=== PATIENT | male | born 1950 | race Caucasian/White ===

== ENCOUNTER → 2017-07-26 | Outpatient (CLI) | payer BC ==
--- NOTE | 2017-07-26 12:48 | CT ---
EXAMINATION TYPE: CT lumbar spine wo con DATE OF EXAM: 07/26/2017 COMPARISON: NONE HISTORY: Low back pain radiating down left leg x [address] DLP: 996 mGycm Automated exposure control for dose reduction was used. An unenhanced CT of the lumbar spine was performed. Bone and soft tissue window settings are submitt ed as well as coronal and sagittal reconstructions. FINDINGS: Lumbar vertebral bodies show preserved height. Retrolisthesis grade 1 L4-5, anterolisthesis grade 1 L 3-4. There is multilevel spondylosis, bone mineralization maintained. There is a spinal curvature. L1-L2: There is facet arthropathy change. Mild loss of disc height is present. Posterior broad-based disc bulge causes minimal anterior mass effect on the thecal sac, no significant foraminal encroachme nt. L2-L3: Facet arthropathy is noted encroaching on the lateral recesses. Posterior extension endplate d isc complex causes anterior mass effect on the thecal sac, only mild central stenosis. Lateral extens ion endplate disc complex contributes cause left-sided greater than right foraminal encroachment. The re is loss of disc height. L3-L4: Loss of disc height is noted, the listhesis contributes to cause bilateral foraminal encroachm ent as well as spinal stenosis which is severe. Air density coursing from the right facet with associ ated facet arthropathy, hypertrophy ligamentum flavum calcification is noted possibly synovial cyst o n the right, there is impression on the lateral recesses. Vacuum phenomenon present at the left facet . Loss of disc height is present. L4-L5: Facet arthropathy is noted, listhesis contributes to cause foraminal encroachment greater on t he right likely contributed by the spinal curvature, there is loss of disc height with associated vac uum phenomenon. Moderate central canal stenosis is suspected. L5-S1: Some loss of disc height is present. Lateral extension of endplate disc complex encroaches mil dly on the foramina. No significant central stenosis. Broad-based disc bulge causes minimal anterior mass effect on the thecal sac. IMPRESSION: Spinal stenosis greatest at L3-4 with possible synovial cyst, correlate with CT prior to any interven tion. Multilevel degenerative disc disease, facet arthropathy. Spinal curvature. Additional findings above.
== END | disposition home or self-care (01) ==
LOC: RADCTMAIN 12:12
PROVIDERS: ATTEND Family Medicine
DX: M48.061 Spinal stenosis, lumbar region without neurogenic claudication (principal); M51.16 Intervertebral disc disorders with radiculopathy, lumbar region; M46.86 Other specified inflammatory spondylopathies, lumbar region; M43.9 Deforming dorsopathy, unspecified
CPT/HCPCS: 72131

== ENCOUNTER 2018-10-20 07:51 | Day surgery (SDC) | payer BC ==
[2018-10-17 15:49] VITALS: BMI 25.7
[~2018-10-20 07:51] MED LIST: LACTATED RINGERS 1,000 ML IV SCH
[2018-10-20 08:01] VITALS: TEMP 97.9
[2018-10-20] MEDS ORDERED: LIDOCAINE 1% 20 ML VIAL (10MG/ML) FOR IV START INTRADERMA ONE (08:20)
[2018-10-20] MEDS ORDERED: PROPOFOL 10 MG/ML 20 ML VIAL IV ONE (09:15)
[2018-10-20] MEDS ORDERED: LIDOCAINE 1% INJ 10MG/ML (20 ML MDV) ONE (09:15)
--- NOTE | 2018-10-20 09:31 | P.GSHP ---
History of Present Illness H&P Date: 10/20/18 Chief Complaint: Screening colonoscopy Cyst 71-year-old male who presents today for screening colonoscopy. Patient denies a significant GI complaints. Past Medical History Past Medical History: COPD, Hyperlipidemia, Hypertension, Rheumatoid Arthritis (RA) Additional Past Medical History / Comment(s): ddd,emphysema, psoriasis History of Any Multi-Drug Resistant Organisms: None Reported Past Surgical History: Heart Catheterization, Hernia Repair, Tonsillectomy Additional Past Surgical History / Comment(s): thyroid bx-neg, anish inguinal hernia repair, heart cath 25 years ago -neg, Past Anesthesia/Blood Transfusion Reactions: Previous Problems w/ Anesthesia Additional Past Anesthesia/Blood Transfusion Reaction / Comment(s): "last time came out of anesthesia came out swinging" Smoking Status: Former smoker - Past Family History Father Family Medical History: Cancer, Congestive Heart Failure (CHF), Hypertension, Rheumatoid Arthritis (RA) Additional Family Medical History / Comment(s): 2014 liver ca and chf Mother Family Medical History: Hyperlipidemia, Hypertension, Rheumatoid Arthritis (RA) Additional Family Medical History / Comment(s): mom is still alive at age 89 Medications and Allergies Home Medications Medication Instructions Recorded Confirmed Type Aspirin 81 mg PO HS 01/15/15 10/20/18 History Enalapril Maleate 10 mg PO DAILY 01/15/15 10/20/18 History Gabapentin 600 mg PO TID 01/15/15 10/20/18 History Hydrocodone/Acetaminophen 1 tab PO Q4-6H PRN 01/15/15 10/20/18 History [Hydrocodon-Acetaminophn 10-325] Simvastatin 40 mg PO HS 01/15/15 10/20/18 History Zolpidem Tartrate 10 mg PO HS PRN 01/15/15 10/20/18 History Esomeprazole Magnesium [NexIUM] 20 mg PO DAILY 01/16/15 10/20/18 History Cholecalciferol [Vitamin D3 (25 1,000 unit PO DAILY 10/17/18 10/20/18 History Mcg = 1000 Iu)] Ibuprofen [Motrin] 600 mg PO TID 10/17/18 10/20/18 History Montelukast Sodium [Singulair] 10 mg PO HS 10/17/18 10/20/18 History Allergies Allergy/AdvReac Type Severity Reaction Status Date / Time codeine phosphate AdvReac HEART Verified 10/20/18 08:02 [From Tylenol-Codeine #3] FLUTTERS Surgical - Exam Vital Signs Temp Pulse Resp Pulse Ox 97.9 F 97 16 98 10/20/18 07:59 10/20/18 07:59 10/20/18 07:59 10/20/18 07:59 - General well developed, well nourished, no distress - Eyes PERRL - ENT normal pinna - Neck no masses - Respiratory normal expansion - Cardiovascular Rhythm: regular - Abdomen Abdomen: soft, non tender Assessment and Plan Assessment: We'll perform screening colonoscopy.
--- NOTE | 2018-10-20 09:48 | P.OP ---
Date of Procedure: 10/20/18 Preoperative Diagnosis: Screening colonoscopy Postoperative Diagnosis: Diverticulosis Procedure(s) Performed: Colonoscopy Anesthesia: MAC Surgeon: Ihsan Pierson Pathology: none sent Condition: stable Disposition: PACU Description of Procedure: The patient's placed on the endoscopy table in the lateral position. He received IV sedation. Digital rectal exam performed which revealed a few external hemorrhoids. Flexible colonoscope was then placed patient anus passed throughout the entire colon. The ileocecal valve lesions. The cecum, ascending and transverse colon appeared normal. In the descending and sigmoid was moderate diverticular changes. The scope was then brought back the rectum and this appeared normal. Scope was withdrawn through the anus and there were external hemorrhoids noted. Scope was withdrawn for patient.
[2018-10-20 10:01] VITALS: BP 120/80; PULSE 69; RESP 18
== END 2018-10-20 10:34 | disposition home or self-care (01) ==
LOC: ORWHC2ENDO 07:51
PROVIDERS: ATTEND Surgery
DX: Z12.11 Encounter for screening for malignant neoplasm of colon (principal); K57.30 Diverticulosis of large intestine without perforation or abscess without bleeding; K64.4 Residual hemorrhoidal skin tags; I10 Essential (primary) hypertension; E78.5 Hyperlipidemia, unspecified; J44.9 Chronic obstructive pulmonary disease, unspecified; M06.9 Rheumatoid arthritis, unspecified; J43.9 Emphysema, unspecified; L40.9 Psoriasis, unspecified; Z87.891 Personal history of nicotine dependence; Z82.49 Family history of ischemic heart disease and other diseases of the circulatory system; Z80.0 Family history of malignant neoplasm of digestive organs; Z82.61 Family history of arthritis; Z79.1 Long term (current) use of non-steroidal anti-inflammatories (NSAID); Z79.82 Long term (current) use of aspirin; Z79.891 Long term (current) use of opiate analgesic; Z79.899 Other long term (current) drug therapy; Z88.5 Allergy status to narcotic agent
CPT/HCPCS: J2001; J2704; G0121

== ENCOUNTER 2019-06-01 10:05 | Inpatient (IN) | payer BC ==
[2019-06-01] MEDS ORDERED: ALBUTEROL NEBULIZED 2.5 MG/3 ML INHALATION STA (10:24)
[2019-06-01] MEDS ORDERED: IPRATROPIUM-ALBUTEROL 3 ML NEB INHALATION STA (10:24)
[2019-06-01] MEDS ORDERED: SODIUM CHLORIDE 0.9% 500 ML 500 ML IV ONE ×3 (10:24→12:33)
[2019-06-01 10:47] LABS: Basophils # (A) 0.1 k/uL (0-0.2); Basophils % (A) 1 %; Eosinophils # (A) 0.2 k/uL (0-0.7); Eosinophils % (A) 3 %; HCT 46.9 % (39.0-53.0); HGB 15.2 gm/dL (13.0-17.5); Lymphocytes # (A) 1.9 k/uL (1.0-4.8); Lymphocytes % (A) 25 %; MCH 28.7 pg (25.0-35.0); MCHC 32.5 g/dL (31.0-37.0); MCV 88.4 fL (80.0-100.0); Mean Platelet Volume 6.7; Monocytes # (A) 0.4 k/uL (0-1.0); Monocytes % (A) 5 %; Neutrophils # (A) 4.9 k/uL (1.3-7.7); Neutrophils % (A) 65 %; Platelet Count 215 k/uL (150-450); RBC 5.31 m/uL (4.30-5.90); WBC 7.6 k/uL (3.8-10.6)
[2019-06-01 10:51] LABS: Appearance,Urine Clear (Clear); Bacteria,Urine Rare /hpf; Bilirubin,Urine Negative (Negative); Blood,Urine Small (Negative); Color,Urine Yellow; Glucose,Urine (UA) Negative (Negative); Granular Casts,Urine 4 /lpf (0); Hyaline Casts,Urine 21 /lpf (0-2); Ketones,Urine Trace (Negative); Leukocyte Esterase,Urine Negative (Negative); Mucus,Urine Occasional /hpf; Nitrite,Urine Negative (Negative); PH, Urine 5.5 (5.0-8.0); Protein,Urine 2+ (Negative); RBC,Urine 2 /hpf (0-5); Specific Gravity,Urine 1.023 (1.001-1.035); Urobilinogen,Urine <2.0 mg/dL (<2.0); WBC,Urine 1 /hpf (0-5)
[2019-06-01 10:57] LABS: ALT 24 U/L (4-49); AST 29 U/L (17-59); African American GFR (CKD) >90 (>60 ml/min/1.73 sqM); Albumin 3.9 g/dL (3.5-5.0); Alkaline Phosphatase 68 U/L (38-126); Anion Gap 14 mmol/L; Blood Urea Nitrogen 15 mg/dL (9-20); Calcium 8.9 mg/dL (8.4-10.2); Carbon Dioxide 17 mmol/L (22-30); Chloride 107 mmol/L (98-107); Glucose 116 mg/dL (74-99); Magnesium 2.3 mg/dL (1.6-2.3); Non-African American GFR(CKD) 89 (>60 ml/min/1.73 sqM); Potassium 4.2 mmol/L (3.5-5.1); Sodium 138 mmol/L (137-145); Total Bilirubin 0.3 mg/dL (0.2-1.3); Total Protein 6.3 g/dL (6.3-8.2)
[2019-06-01 11:12] LABS: INR 0.9 (<1.2); Partial Thromboplastin Time 20.6 sec (22.0-30.0); Prothrombin Time 9.7 sec (9.0-12.0)
--- NOTE | 2019-06-01 11:13 | ED ---
General Adult HPI - General Chief complaint: Syncope Stated complaint: syncope Time Seen by Provider: 06/01/19 10:19 Source: patient, RN notes reviewed, old records reviewed Mode of arrival: ambulatory Limitations: no limitations - History of Present Illness Initial comments: 69-year-old male presenting with syncopal episode, vomiting. Patient was at [facility], driving a high-low. He was found unresponsive, he had vomited. He regained consciousness prior to EMS arrival. He was stating that he felt lightheaded, didn't pass out and vomited once. Denied any preceding chest pain or dyspnea. He has no complaints at the time my evaluation, no chest pain, no dyspnea, no cough, no fever, no abdominal pain, no nausea, no focal numbness or weakness. No headache. - Related Data Home Medications Medication Instructions Recorded Confirmed Aspirin 81 mg PO HS 01/15/15 10/20/18 Enalapril Maleate 10 mg PO DAILY 01/15/15 10/20/18 Gabapentin 600 mg PO TID 01/15/15 10/20/18 Hydrocodone/Acetaminophen 1 tab PO Q4-6H PRN 01/15/15 10/20/18 [Hydrocodon-Acetaminophn 10-325] Simvastatin 40 mg PO HS 01/15/15 10/20/18 Zolpidem Tartrate 10 mg PO HS PRN 01/15/15 10/20/18 Esomeprazole Magnesium [NexIUM] 20 mg PO DAILY 01/16/15 10/20/18 Cholecalciferol [Vitamin D3 (25 1,000 unit PO DAILY 10/17/18 10/20/18 Mcg = 1000 Iu)] Ibuprofen [Motrin] 600 mg PO TID 10/17/18 10/20/18 Montelukast Sodium [Singulair] 10 mg PO HS 10/17/18 10/20/18 Allergies Allergy/AdvReac Type Severity Reaction Status Date / Time codeine phosphate AdvReac HEART Verified 10/20/18 08:02 [From Tylenol-Codeine #3] FLUTTERS Review of Systems ROS Statement: Those systems with pertinent positive or pertinent negative responses have been documented in the HPI. ROS Other: All systems not noted in ROS Statement are negative. Past Medical History Past Medical History: COPD, Hyperlipidemia, Hypertension, Rheumatoid Arthritis (RA) Additional Past Medical History / Comment(s): ddd,emphysema, psoriasis History of Any Multi-Drug Resistant Organisms: None Reported Past Surgical History: Heart Catheterization, Hernia Repair, Tonsillectomy Additional Past Surgical History / Comment(s): thyroid bx-neg, anish inguinal hernia repair, heart cath 25 years ago -neg, Past Anesthesia/Blood Transfusion Reactions: Previous Problems w/ Anesthesia Additional Past Anesthesia/Blood Transfusion Reaction / Comment(s): "last time came out of anesthesia came out swinging" Past Psychological History: No Psychological Hx Reported Smoking Status: Current some day smoker Past Alcohol Use History: None Reported Past Drug Use History: None Reported - Past Family History Father Family Medical History: Cancer, Congestive Heart Failure (CHF), Hypertension, Rheumatoid Arthritis (RA) Additional Family Medical History / Comment(s): 2014 liver ca and chf Mother Family Medical History: Hyperlipidemia, Hypertension, Rheumatoid Arthritis (RA) Additional Family Medical History / Comment(s): mom is still alive at age 89 General Exam Limitations: no limitations General appearance: alert, in no apparent distress Head exam: Present: atraumatic, normocephalic Eye exam: Present: normal appearance, PERRL, EOMI. Absent: nystagmus ENT exam: Present: mucous membranes dry Neck exam: Present: normal inspection. Absent: tenderness, meningismus Respiratory exam: Present: decreased breath sounds. Absent: respiratory distress, wheezes, rales, rhonchi Cardiovascular Exam: Present: regular rate, normal rhythm GI/Abdominal exam: Present: soft. Absent: distended, tenderness, guarding Extremities exam: Present: normal inspection, normal capillary refill. Absent: pedal edema, calf tenderness Neurological exam: Present: alert, oriented X3, CN II-XII intact. Absent: motor sensory deficit Psychiatric exam: Present: normal affect, normal mood Skin exam: Present: warm, dry, intact. Absent: cyanosis, diaphoretic Course Vital Signs 06/01/19 06/01/19 06/01/19 10:17 10:53 11:04 Temperature 98.2 F Pulse Rate 92 80 86 Respiratory 18 Rate Blood Pressure 100/62 O2 Sat by Pulse 90 L Oximetry EKG Findings - EKG Comments: EKG Findings:: EKG: Normal sinus rhythm, rate of 90, SC interval 174, QRS duration 108, QTC 472, no ST segment elevation Medical Decision Making - Medical Decision Making 61-year-old male with syncopal episode, vomiting. Workup in the emergency department reveals EKG showing sinus rhythm no ST segment changes. Patient has normal CBC, normal CMP, he is hypoxic and has a mildly elevated troponin 0.045, there is concern for pulmonary embolism and CT angiography is performed this is negative for PE. Patient is started on heparin, given aspirin. He remains c hest pain-free while in the emergency department. He will be admitted with cardiology on consult. Case is discussed with the admitting physician. Diagnosis: Syncope, non-ST segment elevated [place] - Lab Data Result diagrams: 06/01/19 10:21 06/01/19 10:21 Lab Results 06/01/19 06/01/19 06/01/19 Range/Units 10:05 10:21 10:21 WBC 7.6 (3.8-10.6) k/uL RBC 5.31 (4.30-5.90) m/uL Hgb 15.2 (13.0-17.5) gm/dL Hct 46.9 (39.0-53.0) % MCV 88.4 (80.0-100.0) fL MCH 28.7 (25.0-35.0) pg MCHC 32.5 (31.0-37.0) g/dL RDW 13.0 (11.5-15.5) % Plt Count 215 (150-450) k/uL Neutrophils % 65 % Lymphocytes % 25 % Monocytes % 5 % Eosinophils % 3 % Basophils % 1 % Neutrophils # 4.9 (1.3-7.7) k/uL Lymphocytes # 1.9 (1.0-4.8) k/uL Monocytes # 0.4 (0-1.0) k/uL Eosinophils # 0.2 (0-0.7) k/uL Basophils # 0.1 (0-0.2) k/uL PT 9.7 (9.0-12.0) sec INR 0.9 (<1.2) APTT 20.6 L (22.0-30.0) sec D-Dimer 1.31 H (<0.60) mg/L FEU Sodium (137-145) mmol/L Potassium (3.5-5.1) mmol/L Chloride (98-107) mmol/L Carbon Dioxide (22-30) mmol/L Anion Gap mmol/L BUN (9-20) mg/dL Creatinine (0.66-1.25) mg/dL Est GFR (CKD-EPI)AfAm (>60 ml/min/1.73 sqM) Est GFR (CKD-EPI)NonAf (>60 ml/min/1.73 sqM) Glucose (74-99) mg/dL Calcium (8.4-10.2) mg/dL Magnesium (1.6-2.3) mg/dL Total Bilirubin (0.2-1.3) mg/dL AST (17-59) U/L ALT (4-49) U/L Alkaline Phosphatase (38-126) U/L Troponin I (0.000-0.034) ng/mL Total Protein (6.3-8.2) g/dL Albumin (3.5-5.0) g/dL Urine Color Yellow Urine Appearance Clear (Clear) Urine pH 5.5 (5.0-8.0) Ur Specific [place] 1.023 (1.001-1.035) Urine Protein 2+ H (Negative) Urine Glucose (UA) Negative (Negative) Urine Ketones Trace H (Negative) Urine Blood Small H (Negative) Urine Nitrite Negative (Negative) Urine Bilirubin Negative (Negative) Urine Urobilinogen <2.0 (<2.0) mg/dL Ur Leukocyte Esterase Negative (Negative) Urine RBC 2 (0-5) /hpf Urine WBC 1 (0-5) /hpf Urine Bacteria Rare H (None) /hpf Hyaline Casts 21 H (0-2) /lpf Granular Casts 4 (0) /lpf Urine Mucus Occasional H (None) /hpf 06/01/19 06/01/19 Range/Units 10:21 10:21 WBC (3.8-10.6) k/uL RBC (4.30-5.90) m/uL Hgb (13.0-17.5) gm/dL Hct (39.0-53.0) % MCV (80.0-100.0) fL MCH (25.0-35.0) pg MCHC (31.0-37.0) g/dL RDW (11.5-15.5) % Plt Count (150-450) k/uL Neutrophils % % Lymphocytes % % Monocytes % % Eosinophils % % Basophils % % Neutrophils # (1.3-7.7) k/uL Lymphocytes # (1.0-4.8) k/uL Monocytes # (0-1.0) k/uL Eosinophils # (0-0.7) k/uL Basophils # (0-0.2) k/uL PT (9.0-12.0) sec INR (<1.2) APTT (22.0-30.0) sec D-Dimer (<0.60) mg/L FEU Sodium 138 (137-145) mmol/L Potassium 4.2 (3.5-5.1) mmol/L Chloride 107 (98-107) mmol/L Carbon Dioxide 17 L (22-30) mmol/L Anion Gap 14 mmol/L BUN 15 (9-20) mg/dL Creatinine 0.88 (0.66-1.25) mg/dL Est GFR (CKD-EPI)AfAm >90 (>60 ml/min/1.73 sqM) Est GFR (CKD-EPI)NonAf 89 (>60 ml/min/1.73 sqM) Glucose 116 H (74-99) mg/dL Calcium 8.9 (8.4-10.2) mg/dL Magnesium 2.3 (1.6-2.3) mg/dL Total Bilirubin 0.3 (0.2-1.3) mg/dL AST 29 (17-59) U/L ALT 24 (4-49) U/L Alkaline Phosphatase 68 (38-126) U/L Troponin I 0.045 H* (0.000-0.034) ng/mL Total Protein 6.3 (6.3-8.2) g/dL Albumin 3.9 (3.5-5.0) g/dL Urine Color Urine Appearance (Clear) Urine pH (5.0-8.0) Ur Specific [place] (1.001-1.035) Urine Protein (Negative) Urine Glucose (UA) (Negative) Urine Ketones (Negative) Urine Blood (Negative) Urine Nitrite (Negative) Urine Bilirubin (Negative) Urine Urobilinogen (<2.0) mg/dL Ur Leukocyte Esterase (Negative) Urine RBC (0-5) /hpf Urine WBC (0-5) /hpf Urine Bacteria (None) /hpf Hyaline Casts (0-2) /lpf Granular Casts (0) /lpf Urine Mucus (None) /hpf Critical Care Time Critical Care Time: Yes Total Critical Care Time: 35 Disposition Clinical Impression: Syncope, NSTEMI (non-ST elevated myocardial infarction) Disposition: ADMITTED IP TO THIS [facility] Condition: Stable Is patient prescribed a controlled substance at d/c from ED?: No Referrals: Saman Gray MD [Primary Care Provider] - 1-2 days Decision to Admit Reason: Admit from EC Decision Date: 06/01/19 Decision Time: 12:36
[2019-06-01 11:25] LABS: D-Dimer 1.31 mg/L FEU (<0.60)
[2019-06-01] MEDS ORDERED: HEPARIN SODIUM,PORCINE 10,000 UNIT/ML 1 ML VIAL IV ONE (11:26)
[2019-06-01] MEDS ORDERED: HEPARIN SODIUM,PORCINE 5,000 UNIT/ML 1 ML VIAL IV PRN (11:26)
[2019-06-01] MEDS ORDERED: HEPARIN SOD,PORK IN 0.45% NACL 25,000 UNIT in 0.45% NACL 1 250ML.BAG IV SCH (11:30)
--- NOTE | 2019-06-01 12:16 | CT ---
EXAMINATION TYPE: CT angio chest DATE OF EXAM: 06/01/2019 COMPARISON: NONE HISTORY: Syncope. Shortness of breath. Possible pulmonary embolism. CT DLP: 537 mGycm. Automated Exposure Control for Dose Reduction was Utilized. CONTRAST: CTA scan of the thorax is performed with IV Contrast, patient injected with 100 mL of Isovue 370, pul monary embolism protocol. MIP Images are created on CT scanner and reviewed. FINDINGS: LUNGS: There is background moderate underlying emphysematous change with some right lower lung depend ent atelectasis and/or infiltrate. No pleural effusion or pneumothorax is seen bilaterally. No suspic ious nodules or masses. MEDIASTINUM: There is satisfactory enhancement of the pulmonary artery and its branches, there is no CT evidence for pulmonary embolism. There are no greater than 1 cm hilar or mediastinal lymph nodes. There are prominent but subcentimeter bilateral hilar and mediastinal lymph nodes. No cardiomegaly or pericardial effusion is seen. Coronary artery calcification is present which is noted marker for u nderlying coronary artery disease. OTHER: Simple appearing 4.3 cm thin-walled cyst. Moderate multilevel spurring in the thoracic spine. IMPRESSION: No CT evidence for acute pulmonary embolism. Moderate emphysematous change with right bas ilar posterior dependent atelectasis and/or limited consolidation.
[2019-06-01] MEDS ORDERED: ASPIRIN 81 MG PO STA (12:30)
[2019-06-01] MEDS ORDERED: NITROGLYCERIN SL TABS 0.4 MG TAB SUBLINGUAL PRN ×3 (12:30→15:49)
[2019-06-01] MEDS ORDERED: SODIUM CHLORIDE 0.9% 1,000 ML in EMPTY BAG 1 BAG IV ONE (13:48)
[2019-06-01] MEDS ORDERED: ALPRAZolam 0.25 MG TAB PO PRN (13:48)
[2019-06-01] MEDS ORDERED: ALPRAZolam 0.5 MG TAB PO PRN (13:48)
[2019-06-01] MEDS ORDERED: ASPIRIN 325 MG TAB PO STA (13:48)
[2019-06-01] MEDS ORDERED: ATORVASTATIN 80 MG TAB PO STA (13:48)
--- NOTE | 2019-06-01 14:14 | CONS ---
CONSULTATION Mr. Ojeda is a 69-year-old gentleman who came to the emergency room with a history of syncope and vomiting. Patient gives a history that he was driving [place] and he suddenly became dizzy and became unresponsive and subsequently he had vomiting. When the EMS arrived, patient did regain his consciousness, but he was feeling lightheadedness and had one vomiting. He did not complain of any significant chest pain at that time, but after he arrived on the 6th floor, he says he is having mild dull, aching pain. He denies any abdominal pain. In the emergency room, EKG did not show any significant abnormality, but the troponin was elevated and he was mildly hypotensive. His oxygen saturation was 90%. In view of that, patient underwent a CT scan of the chest which did not show any evidence of pulmonary embolism and patient was admitted initially non ST-segment elevation myocardial infarction. HOME MEDICATIONS: Include aspirin 81 mg daily, enalapril 10 mg daily, gabapentin 600 mg 3 times a day, hydrocodone, simvastatin, Nexium, and Ambien. REVIEW OF THE SYSTEM: Otherwise unremarkable. PAST MEDICAL HISTORY: Includes a history of COPD, hyperlipidemia, hypertension, history of psoriasis. Patient says he had a cardiac catheterization done about 10 years ago. At that time, no significant coronary artery disease was detected. PHYSICAL EXAMINATION: At present reveals a 69-year-old gentleman who does not appear to be in any acute distress. In the emergency room, patient's oxygen saturation was 90%. Blood pressure was 100/62 mmHg, heart rate was 90 per minute, respiratory rate was 18. HEENT examination is negative. Neck is supple. There is no increase in jugular venous pressure. Both the carotid pulses are felt. There is no bruit. Chest is symmetrical. Heart, the PMI is not felt. First and second heart sounds are normal. There is no evidence of any murmur. Lungs are clinically clear to auscultation and percussion. Abdomen is soft. Liver and spleen are not enlarged. Extremities, peripheral pulsations are 2+. EKG shows normal sinus rhythm without any acute ischemic changes. EKG shows a normal sinus rhythm. There is a minimal J-point elevation in 1 and aVL and possibly V5 with a mild T-wave inversions noted in lead aVL. Patient's creatinine is 0.88. CT scan is negative for pulmonary embolism. FINAL IMPRESSION: This patient had a near episode of syncope associated with vomiting, had mild chest discomfort apparently came to the floor. There is a minimal questionable abnormality of the EKG suggestive of acute myocardial infarction. This was discussed with the patient and he is advised further evaluation with a cardiac catheterization. FELICITY / KRISTEN: [id number] /
[2019-06-01] MEDS ORDERED: fentaNYL (PF) 50 MCG/ML 2 ML AMP ONE (14:34)
[2019-06-01] MEDS ORDERED: LIDOCAINE 1% INJ 10MG/ML (20 ML MDV) ONE (14:34)
[2019-06-01] MEDS ORDERED: LIDOCAINE 1% INJ 10MG/ML (20 ML MDV) SQ ONE (14:38)
[2019-06-01] MEDS ORDERED: fentaNYL (PF) 50 MCG/ML 2 ML AMP IVP ONE (14:38)
[2019-06-01] MEDS ORDERED: MIDAZOLAM 2 MG/2 ML VIAL IVP ONE (14:39)
[2019-06-01] MEDS ORDERED: SODIUM CHLORIDE 0.9% 1,000 ML IV ONE (14:45)
[2019-06-01] MEDS ORDERED: BIVALIRUDIN BOLUS 250 MG/50 ML IV ONE (15:35)
[2019-06-01] MEDS ORDERED: BIVALIRUDIN 250 MG in SODIUM CHLORIDE 0.9% 50 ML IV ONE (15:41)
[2019-06-01] MEDS ORDERED: PRASUGREL 10 MG TAB ONE ×2 (15:43)
[2019-06-01] MEDS ORDERED: MAG HYDROX/AL HYDROX/SIMETH 30 ML CUP PO PRN (15:49)
[2019-06-01] MEDS ORDERED: ATROPINE SULFATE 0.1 MG/ML 10ML SYRINGE IV PRN (15:49)
[2019-06-01] MEDS ORDERED: RX INFO: IV CONTRAST WAS GIVEN 1 EACH MISC MISCELLANE PRN (15:49)
[2019-06-01] MEDS ORDERED: IOPAMIDOL-370 125ML BTL INJ ONE ×2 (15:51→15:52)
[2019-06-01] MEDS ORDERED: PRASUGREL 10 MG TAB PO ONE (15:51)
[2019-06-01] MEDS ORDERED: SODIUM CHLORIDE 0.9% 1,000 ML IV SCH (16:00)
[2019-06-01] MEDS: SODIUM CHLORIDE 0.9% 1,000 ML IV SCH ×2 (16:18→18:23)
[2019-06-01] MEDS: HEPARIN SOD,PORK IN 0.45% NACL 25,000 UNIT in 0.45% NACL 1 250ML.BAG IV SCH (16:18)
--- NOTE | 2019-06-01 17:29 | CC ---
CARDIAC CATHETERIZATION REPORT Mr. Allison is a 69-year-old gentleman who came to the hospital with a complaint of syncope and subsequently had an episode of vomiting. Patient's initial troponin was elevated. CT scan of the chest was negative for pulmonary embolism. Initial EKG showed minimal J-point elevation in 1 and aVL with little T-wave inversions in the aVL. Repeat EKG was shows some ST elevation in 1, aVL, as well as V4 to V6. STAT echocardiogram was performed, which was suggestive of extensive wall motion abnormality involving the apex and anterior lateral and inferior apical segment. In view of this, patient was recommended to have a cardiac catheterization for definitive diagnosis. PROCEDURE DETAILS: The right groin was prepped and draped in the usual manner and the skin was infiltrated with 2% Xylocaine. The right femoral artery was entered using Seldinger technique and micropuncture needle and a #6-Urdu sheath was placed in. Selective coronary angiography was then performed in multiple projections and the left ventriculography was performed. Moderate sedation was used. Total sedation time is 20 minutes. HEMODYNAMICS: The left ventricular end-diastolic 16-20 mmHg prior to angiography. No gradient is noted across the aortic valve. SELECTIVE CORONARY ANGIOGRAPHY: Left main coronary artery is normal and patent. LAD is a good caliber blood vessel. The circumflex coronary artery is a good caliber blood vessel and gives rise to a high good-sized obtuse marginal branch. The circumflex coronary artery and its branches are normal. LAD is a good caliber blood vessel and is normal. Right coronary artery has an ulcerated lesion in the mid right coronary artery with about 70% stenosis. Left ventriculography was performed which showed evidence of extensive anterior apical and inferior apical hypokinesia with ejection fraction of 35%. This is more likely suggestive of takotsubo syndrome. 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 The left LAD and circumflex coronary arteries are normal. Left ventriculography is suggestive of a takotsubo syndrome. FINAL IMPRESSION: It is possible that the patient had an acute coronary syndrome in the distribution of the right coronary artery which probably led to the left ventricular wall motion abnormality consistent with takotsubo syndrome. The films were reviewed with Dr. Allison. Because of the unstable vulnerable plaque in mid right coronary artery with 70% stenosis, we will proceed with a stent to the RCA. MMODL / IJN: [id number] /
--- NOTE | 2019-06-01 17:35 | PTCA ---
PERCUTANEOUSTRANS CORORONARY ANGIOGRAPHY PERFORMING PHYSICIAN: Ketan Allison M.D. PROCEDURE PERFORMED: Successful stenting of the mid RCA using 3.0 x 18 mm Xience FAUSTINA which was post dilated using 3.5 mm NC balloon with an excellent angiographic results. INDICATION: This is a 69-year-old gentleman who presented to the hospital with syncopal episode. His EKG showed nonspecific changes and troponin came into be slightly abnormal. He underwent a heart catheterization by Dr. Moreira and was found to have severe disease involving the mid RCA. The plaque appeared to be ulcerated. APPROACH: Right common femoral artery. COMPLICATION: None. LEVEL OF SEDATION: Moderate with sedation length of 16 minutes. PROCEDURE DESCRIPTION: Please refer to diagnostic heart catheterization was performed by Dr. Moreira earlier today. Anticoagulation was initiated using Angiomax. Subsequently, I did engage the RCA using JR4 guide. I did wire the RCA using a run-through wire. After that, I did direct stenting using 3.0 x 12 mm balloon before I deployed a 3.0 x 18 mm Xience FAUSTINA where the stent was positioned under fluoroscopy guidance and deployed under 20 atmospheres for 20 seconds. I post-dilated the stent using 3.5 mm NC balloon which was inflated under 20 atmospheres as well. The final angiogram showed good angiographic results and the procedure was completed without any complication. POSTPROCEDURE MANAGEMENT: 1. Dual anti-platelet therapy. 2. Risk factors modifications. 3. Follow up with the patient. MMMEGANL / PIYUSHN: [id number] /
[2019-06-01] MEDS: oxyCODONE-APAP 10-325MG 1 EACH TAB PO SCH (20:49)
[2019-06-01] MEDS: IBUPROFEN 600 MG TAB PO SCH (20:50)
[2019-06-01] MEDS: GABAPENTIN 300 MG CAP PO SCH (20:51)
[2019-06-01] MEDS: MONTELUKAST 10 MG TAB PO SCH (20:51)
[2019-06-01] MEDS: ATORVASTATIN 40 MG TAB PO SCH (20:51)
[2019-06-01] MEDS: NICOTINE 21MG/24HR PATCH TRANSDERM SCH (20:51)
[2019-06-02 06:09] LABS: Basophils % (A) 0 %; Eosinophils # (A) 0.2 k/uL (0-0.7); Eosinophils % (A) 3 %; HCT 42.7 % (39.0-53.0); HGB 14.1 gm/dL (13.0-17.5); Lymphocytes # (A) 1.4 k/uL (1.0-4.8); Lymphocytes % (A) 20 %; MCH 28.8 pg (25.0-35.0); MCV 87.3 fL (80.0-100.0); Mean Platelet Volume 7.1; Monocytes # (A) 0.5 k/uL (0-1.0); Monocytes % (A) 6 %; Neutrophils % (A) 69 %; Platelet Count 179 k/uL (150-450); RBC 4.89 m/uL (4.30-5.90); RDW 13.3 % (11.5-15.5); WBC 7.3 k/uL (3.8-10.6)
[2019-06-02 06:36] LABS: African American GFR (CKD) >90 (>60 ml/min/1.73 sqM); Cholesterol 126 mg/dL (<200); HDL Cholesterol 50 mg/dL (40-60); LDL Cholesterol,Calculated 59 mg/dL (0-99); Non-African American GFR(CKD) >90 (>60 ml/min/1.73 sqM); Triglycerides 83 mg/dL (<150)
[2019-06-02] MEDS: IBUPROFEN 600 MG TAB PO SCH ×3 (09:42→21:24)
[2019-06-02] MEDS: LISINOPRIL 20 MG TAB PO SCH (09:42)
[2019-06-02] MEDS: PRASUGREL 10 MG TAB PO SCH (09:42)
[2019-06-02] MEDS: ASPIRIN 325 MG TAB PO SCH (09:43)
[2019-06-02] MEDS: GABAPENTIN 300 MG CAP PO SCH ×4 (09:43→21:24)
[2019-06-02] MEDS: NICOTINE 21MG/24HR PATCH TRANSDERM SCH (09:43)
[2019-06-02] MEDS: oxyCODONE-APAP 10-325MG 1 EACH TAB PO SCH ×3 (09:47→21:23)
[2019-06-02 09:54] VITALS: BMI 26.5
--- NOTE | 2019-06-02 10:36 | ECHOF ---
Referral Reason:assess lvf MEASUREMENTS -------- HEIGHT: 188.0 cm WEIGHT: 90.7 kg BP: RVIDd: 3.7 cm (< 3.3) IVSd: 1.2 cm (0.6 - 1.1) LVIDd: 5.9 cm (3.9 - 5.3) LVPWd: 1.0 cm (0.6 - 1.1) IVSs: 1.2 cm LVIDs: 5.2 cm LVPWs: 1.0 cm LA Diam: 4.3 cm (2.7 - 3.8) LAESV Index (A-L): 33.53 ml/m Ao Diam: 3.5 cm (2.0 - 3.7) AV Cusp: 2.1 cm (1.5 - 2.6) MV EXCURSION: 19.089 mm (> 18.000) MV EF SLOPE: 106 mm/s (70 - 150) EPSS: 0.8 cm MV E Nitesh: 0.48 m/s MV DecT: 173 ms MV A Nitesh: 0.54 m/s MV E/A Ratio: 0.88 RAP: 5.00 mmHg RVSP: 43.10 mmHg FINDINGS -------- Sinus rhythm. This was a techncally difficult study with suboptimal views, , Definity utilized for enhancement of i mages. The left ventricular size is normal. There is mild concentric left ventricular hypertrophy. Overa ll left ventricular systolic function is severely impaired with, an EF between 25 - 30 %. Mid anter ior LV wall motion is akinetic. Mid lateral LV wall motion is akinetic. Mid inferior LV wall mo tion is akinetic. Mid inferoseptal LV wall motion is akinetic. Apical anterior LV wall motion i s akinetic. Apical lateral LV wall motion is akinetic. Apical inferior LV wall motion is akinet ic. Apical septum LV wall motion is akinetic. The right ventricle is normal in size. LA is midly dilated 29-33ml/m2. The right atrial size is normal. xx ml of Lumason was utilized for enhancement of images. There is mild aortic valve sclerosis. There is no evidence of aortic regurgitation. Mild mitral annular calcification present. Mild mitral regurgitation is present. Mild tricuspid regurgitation present. There is mild pulmonary hypertension. The right ventricular systolic pressure, as measured by Doppler, is 43.10mmHg. There is no pulmonic regurgitation present. The aortic root size is normal. There is no pericardial effusion. CONCLUSIONS -------- 1. Sinus rhythm. 2. This was a techncally difficult study with suboptimal views, , Definity utilized for enhancement o f images. 3. The left ventricular size is normal. 4. There is mild concentric left ventricular hypertrophy. 5. Overall left ventricular systolic function is severely impaired with, an EF between 25 - 30 %. 6. Mid anterior LV wall motion is akinetic. 7. Mid lateral LV wall motion is akinetic. 8. Mid inferior LV wall motion is akinetic. 9. Mid inferoseptal LV wall motion is akinetic. 10. Apical anterior LV wall motion is akinetic. 11. Apical inferior LV wall motion is akinetic. 12. Apical septum LV wall motion is akinetic. 13. LA is midly dilated 29-33ml/m2. 14. xx ml of Lumason was utilized for enhancement of images. 15. There is mild aortic valve sclerosis. 16. Mild mitral annular calcification present. 17. Mild mitral regurgitation is present. 18. Mild tricuspid regurgitation present. 19. There is mild pulmonary hypertension. 20. There is no pulmonic regurgitation present. 21. There is no pericardial effusion. WWE WRESTLER: Aby Singh RDCS
--- NOTE | 2019-06-02 11:08 | PN ---
PROGRESS NOTE This patient is admitted with symptoms of chest pain and EKG findings suggestive of non ST-segment elevation myocardial infarction. The patient underwent a cardiac catheterization which revealed 70% ulcerated unstable plaque in the mid right coronary artery. However patient's left ventriculography was suggestive of a takotsubo syndrome. This was discussed with the patient. The films were reviewed with Dr. Allison. The patient underwent a stent to the mid RCA. The patient is currently stable without any chest pain or shortness of breath. Heart rate is 89 per minute, blood pressure is 140/84 mmHg. First and second heart sounds are normal. Lungs are clinically clear to auscultation and percussion. We will add Lopressor. Continue Lasix and lisinopril. We will recheck the echocardiogram on Tuesday. If the left ventricular systolic function is better, the patient can be discharged home on Tuesday. FELICITY / KRISTEN: [id number] /
--- NOTE | 2019-06-02 11:38 | HP ---
HISTORY AND PHYSICAL 69-year-old white male came in with syncope. Saw the patient on 06/01/2019. He apparently was on his way to the heart catheterization lab. He fell. He became unresponsive. He had some vomiting when driving his hi-lo. He had positive troponins. He is going to be taken to the heart catheterization lab at this time. He is a long-time smoker. CT of the chest did not show PE. He had non- STEMI. At home medicines were aspirin, enalapril, gabapentin, hydrocodone, simvastatin, Nexium, Ambien. REVIEW OF SYSTEMS: Fourteen-point review of systems negative except for syncope. PAST MEDICAL HISTORY: COPD, neuropathy, lumbar disc disease, osteoarthritis, hypertension, dyslipidemia, psoriasis. PHYSICAL EXAM: 69-year-old white male with a jump from the bed up onto the table to the stretcher to go to the clinical laboratory science professor with no problem. LUNGS: Clear. Cardiovascular: S1-S2. Hematology: Negative Homans'. Psych: Fair mood and affect. Blood pressure is 100s over 60s, heart rate is 90s, respiratory 16 to 18, O2 saturation is 90 to 92 on room air. Hematology negative Homans. GI soft. EKG sinus rhythm without any ischemic changes. ASSESSMENT: 1. Non ST elevation myocardial infarction. 2. Neuropathy. 3. Hypertension. 4. Chronic obstructive pulmonary disease. 5. Nicotine addiction. 6. Heart catheterization, he is going to go for a heart catheterization today with possible stenting. Date of service 06/01/2019. MMODL / IJN: [id number] /
[2019-06-02] MEDS: METOPROLOL SUCCINATE (ER) 25 MG TAB.ER.24H PO SCH (12:36)
[2019-06-02] MEDS: SODIUM CHLORIDE 0.9% 1,000 ML IV SCH (19:58)
[2019-06-02] MEDS: ATORVASTATIN 40 MG TAB PO SCH (21:23)
[2019-06-02] MEDS: MONTELUKAST 10 MG TAB PO SCH (21:24)
[2019-06-02] MEDS: HEPARIN SOD,PORK IN 0.45% NACL 25,000 UNIT in 0.45% NACL 1 250ML.BAG IV SCH (21:26)
[2019-06-02] MEDS: ZOLPIDEM 5 MG TAB PO PRN (21:29)
--- NOTE | 2019-06-02 22:41 | PN ---
PROGRESS NOTE 69-year-old white male with a non STEMI. With right coronary artery stent placed. Remains on heparin drip, metoprolol succinate, atorvastatin, aspirin, Xanax, Heparin. Continue current treatment for wound. Temperature 97 to 98, pulse 70 to 75, respiratory 16 to 18, blood pressure 108-117/60- 73, O2 is 95% on room air. Cardiovascular S1, S2. Lungs transmitted upper airway sounds. Hematology negative Homans. PSYCH: Fair mood and affect. Neurologic: Alert and oriented x3. ASSESSMENT: 1. Status post PTCA for non ST elevation myocardial infarction right coronary artery. 2. History of chronic obstructive pulmonary disease. 3. History of nicotine addiction. 4. Osteoarthritis. 5. Neuropathy. Continue current home medicines. Risk factor modifications. Labs reviewed with patient. MMODL / IJN: [id number] /
[2019-06-03] MEDS: SODIUM CHLORIDE 0.9% 1,000 ML IV SCH (04:21)
[2019-06-03 06:07] LABS: Basophils # (A) 0.1 k/uL (0-0.2); Basophils % (A) 1 %; Eosinophils # (A) 0.3 k/uL (0-0.7); Eosinophils % (A) 5 %; HCT 41.9 % (39.0-53.0); HGB 13.4 gm/dL (13.0-17.5); Lymphocytes # (A) 1.6 k/uL (1.0-4.8); Lymphocytes % (A) 24 %; MCH 28.2 pg (25.0-35.0); MCV 88.1 fL (80.0-100.0); Mean Platelet Volume 6.9; Monocytes # (A) 0.5 k/uL (0-1.0); Monocytes % (A) 8 %; Neutrophils % (A) 61 %; Platelet Count 173 k/uL (150-450); RBC 4.75 m/uL (4.30-5.90); RDW 13.2 % (11.5-15.5); WBC 6.6 k/uL (3.8-10.6)
[2019-06-03] MEDS: IBUPROFEN 600 MG TAB PO SCH ×3 (08:14→22:06)
[2019-06-03] MEDS: PRASUGREL 10 MG TAB PO SCH (08:14)
[2019-06-03] MEDS: LISINOPRIL 20 MG TAB PO SCH (08:14)
[2019-06-03] MEDS: ASPIRIN 325 MG TAB PO SCH (08:14)
[2019-06-03] MEDS: METOPROLOL SUCCINATE (ER) 25 MG TAB.ER.24H PO SCH (08:14)
[2019-06-03] MEDS: oxyCODONE-APAP 10-325MG 1 EACH TAB PO SCH ×3 (08:15→22:06)
[2019-06-03] MEDS: GABAPENTIN 300 MG CAP PO SCH ×4 (08:16→22:04)
--- NOTE | 2019-06-03 10:30 | P.PN ---
Subjective Progress Note Date: 06/03/19 This is 61-year-old gentleman who presented to the hospital with symptoms of syncope and vomiting. His initial CAT scan did not show any evidence of pulmonary embolism and patient was admitted with diagnosis of non-ST elevation myocardial infarction. Patient underwent cardiac catheterization with subsequ ent angioplasty and stenting of the RCA. His EKG this morning showed a normal sinus rhythm with deep T-wave inversion in the anterior lateral leads suggestive ofstress cardiomyopathy. Patient denies any chest discomfort and is breathing is stable. Hemodynamically he is stable. Objective - Vital Signs Vital signs: Vital Signs Temp 98.3 F 06/03/19 08:00 Pulse 71 06/03/19 08:00 Resp 18 06/03/19 08:00 BP 107/58 06/03/19 08:00 Pulse Ox 94 L 06/03/19 04:18 Intake & Output 06/02/19 06/03/19 06/03/19 18:59 06:59 18:59 Intake Total 1164 240 480 Output Total 300 Balance 1164 -60 480 Weight 101.5 kg 101.7 kg Intake: Oral 1164 240 480 Output: Urine 300 Other: Voiding Method Toilet Toilet # Voids 2 1 1 - Exam PHYSICAL EXAMINATION: GENERAL: 69-year-old gentleman in no acute distress at the time of my examination HEENT: Head is atraumatic, normocephalic. Pupils equal, round. Sclera anicteric. Conjunctiva are clear. Mucous membranes of the mouth are moist. Neck is supple. There is no elevated jugular venous pressure.No Carotid bruit is heard. HEART EXAMINATION: Heart S1, S2 normal. No murmur or gallop heard. CHEST EXAMINATION: Lungs are clear to auscultation and precussion. No chest wall tenderness is noted on palpation or with deep breathing. ABDOMEN: Soft, nontender. Bowel sounds are heard. No organomegaly noted. EXTREMITIES: 2+ peripheral pulses with no evidence of peripheral edema and no calf tenderness noted. Right groin is soft with no evidence of any hematoma. Mild tenderness noted. NEUROLOGIC patient is awake, alert and oriented X3. . - Labs CBC & Chem 7: 06/03/19 05:22 06/02/19 05:35 Assessment and Plan Plan: Assessment and plan #1 non-STEMI status post angioplasty and stenting of the RCA, echocardiogram with Doppler study suggestive of stress cardiomyopathy\ #2 hyperlipidemia #3 asthma Plan We will continue the patient on his current medications, continue to observe for 24 hours, repeat echocardiogram with Doppler study in the morning. DNP note has been reviewed, I agree with a documented findings and plan of care. Patient was seen and examined.
[2019-06-03] MEDS: NICOTINE 21MG/24HR PATCH TRANSDERM SCH (12:28)
--- NOTE | 2019-06-03 20:55 | PN ---
PROGRESS NOTE 69-year-old white male, non-STEMI, status post PTCA of the right coronary artery. Echocardiogram scheduled for tomorrow morning prior to discharge. No chest pain or shortness of breath today. Vital signs stable. CARDIOVASCULAR: S1, S2. Lungs clear. GI soft. Hematology negative Homans. ASSESSMENT: 1. Non ST elevation myocardial infarction. 2. Status post PTCA right coronary artery. 3. Possible discharge home tomorrow. 4. Patient is stabilizing from medical standpoint. MMODL / IJN: [id number] /
[2019-06-03] MEDS: MONTELUKAST 10 MG TAB PO SCH (22:05)
[2019-06-03] MEDS: ATORVASTATIN 40 MG TAB PO SCH (22:06)
[2019-06-03] MEDS: ZOLPIDEM 5 MG TAB PO PRN (22:08)
[2019-06-04 05:22] VITALS: PULSE 68; TEMP 97.6
[2019-06-04 06:33] LABS: Basophils % (A) 1 %; Eosinophils # (A) 0.3 k/uL (0-0.7); Eosinophils % (A) 4 %; HCT 42.7 % (39.0-53.0); HGB 14.2 gm/dL (13.0-17.5); Lymphocytes # (A) 1.4 k/uL (1.0-4.8); Lymphocytes % (A) 21 %; MCH 29.3 pg (25.0-35.0); MCHC 33.4 g/dL (31.0-37.0); MCV 87.9 fL (80.0-100.0); Mean Platelet Volume 6.9; Monocytes # (A) 0.4 k/uL (0-1.0); Monocytes % (A) 7 %; Neutrophils # (A) 4.2 k/uL (1.3-7.7); Neutrophils % (A) 65 %; Platelet Count 192 k/uL (150-450); RBC 4.86 m/uL (4.30-5.90); RDW 13.3 % (11.5-15.5); WBC 6.4 k/uL (3.8-10.6)
[2019-06-04 08:01] VITALS: BP 126/83; RESP 16
[2019-06-04] MEDS: PRASUGREL 10 MG TAB PO SCH (09:07)
[2019-06-04] MEDS: oxyCODONE-APAP 10-325MG 1 EACH TAB PO SCH (09:07)
[2019-06-04] MEDS: NICOTINE 21MG/24HR PATCH TRANSDERM SCH (09:09)
[2019-06-04] MEDS: GABAPENTIN 300 MG CAP PO SCH ×2 (09:09→12:35)
[2019-06-04] MEDS: LISINOPRIL 20 MG TAB PO SCH (09:09)
[2019-06-04] MEDS: ASPIRIN 325 MG TAB PO SCH (09:09)
[2019-06-04] MEDS: METOPROLOL SUCCINATE (ER) 25 MG TAB.ER.24H PO SCH (09:10)
--- NOTE | 2019-06-04 09:22 | ECHOF ---
Referral Reason:limited to assess lvf MEASUREMENTS -------- HEIGHT: 188.0 cm WEIGHT: 101.6 kg BP: 138/84 FINDINGS -------- Sinus rhythm. Limited Study for LV Function: Pt had IN, Echo done 06/01/19. Overall left ventricular systolic function is mild-moderately impaired with, an EF between 40 - 45 %. There is no pericardial effusion. CONCLUSIONS -------- 1. Sinus rhythm. 2. Overall left ventricular systolic function is mild-moderately impaired with, an EF between 40 - 45 %. 3. There is no pericardial effusion. CIRCULAR GANG SAW OPERATOR: Aby Singh RDCS
--- NOTE | 2019-06-04 09:34 | P.PN ---
Subjective Progress Note Date: 06/04/19 This is 61-year-old gentleman who presented to the hospital with symptoms of syncope and vomiting. His initial CAT scan did not show any evidence of pulmonary embolism and patient was admitted with diagnosis of non-ST elevation myocardial infarction. Patient underwent cardiac catheterization with subsequ ent angioplasty and stenting of the RCA. His EKG this morning showed a normal sinus rhythm with deep T-wave inversion in the anterior lateral leads suggestive ofstress cardiomyopathy. Patient denies any chest discomfort and is breathing is stable. Hemodynamically he is stable. 06/04/2019 Patient was seen and examined this morning, doing well, breathing is stable, he denies any chest discomfort and he's been up ambulating without any difficulty. Repeat echocardiogram with Doppler study showed an ejection fraction of 40-45%. Blood pressure 126/82 with a heart rate of 68, 94% on room air. White blood cell count 6.4, hemoglobin 14.2, platelet count 192. Objective - Vital Signs Vital signs: Vital Signs Temp 97.6 F 06/04/19 07:54 Pulse 68 06/04/19 07:54 Resp 16 06/04/19 07:54 BP 126/83 06/04/19 07:54 Pulse Ox 94 L 06/04/19 04:00 Intake & Output 06/03/19 06/04/19 06/04/19 18:59 06:59 18:59 Intake Total 2520 220 Balance 2520 220 Weight 102.9 kg Intake: Oral 2520 220 Other: Voiding Method Toilet Toilet # Voids 6 2 # Bowel Movements 1 1 - Exam PHYSICAL EXAMINATION: GENERAL: 69-year-old gentleman in no acute distress at the time of my examination HEENT: Head is atraumatic, normocephalic. Pupils equal, round. Sclera anicteric. Conjunctiva are clear. Mucous membranes of the mouth are moist. Neck is supple. There is no elevated jugular venous pressure.No Carotid bruit is heard. HEART EXAMINATION: Heart S1, S2 normal. No murmur or gallop heard. CHEST EXAMINATION: Lungs are clear to auscultation and precussion. No chest wall tenderness is noted on palpation or with deep breathing. ABDOMEN: Soft, nontender. Bowel sounds are heard. No organomegaly noted. EXTREMITIES: 2+ peripheral pulses with no evidence of peripheral edema and no calf tenderness noted. Right groin is soft with no evidence of any hematoma. Mild tenderness noted. NEUROLOGIC patient is awake, alert and oriented X3. . - Labs CBC & Chem 7: 06/04/19 05:58 06/02/19 05:35 Assessment and Plan Plan: Assessment and plan #1 non-STEMI status post angioplasty and stenting of the RCA, echocardiogram with Doppler study suggestive of stress cardiomyopathy\ #2 hyperlipidemia #3 asthma Plan We will continue the patient on his current medications, he may be discharged home today from cardiology's perspective, we'll make him a follow-up appointment in the office post discharge. DNP note has been reviewed, I agree with a documented findings and plan of care. Patient was seen and examined.
[2019-06-04 11:41] LABS: Hemoglobin A1C 5.8 % (4.0-6.0)
--- NOTE | 2019-06-04 14:31 | P.DS ---
Providers Date of admission: 06/01/19 12:30 Expected date of discharge: 06/04/19 Attending physician: Saman Gray Consults: 06/01/19 12:30 Consult Physician Urgent Consulting Provider: Alysia Moreira Consult Reason/Comments: NSTEMI Do you want consulting provider notified?: Yes 06/01/19 15:49 Consult Physician Routine Consulting Provider: [facility] Consult Reason/Comments: Post Interventional patient Do you want consulting provider notified?: Already Contacted Primary care physician: [facility] Course: Final Diagnoses: NSTEMI Status post PTCA RCA Rheumatoid arthritis Hypertension Hyperlipidemia Former nicotine dependence Hospital course this is a 69-year-old gentleman with NSTEMI, s/p PTCA of RCA, tolerated procedure well. Echo reported mild to moderately impaired LV function, EF 40-45%. Significant clinical improvement. Cleared by cardiology for discharge. Patient is being discharged home in a stable condition with guarded prognosis. The impression and plan of care has been dictated as directed. : I performed a history and examination of this patient, discussed the same with the dictator. I agree with the dictator's note ,documented as a scribe. Any additional findings or plans will be noted. Patient Condition at Discharge: Stable Plan - Discharge Summary Discharge Rx Participant: No New Discharge Prescriptions: New Prasugrel [Effient] 10 mg PO DAILY #30 tab Atorvastatin [Lipitor] 40 mg PO HS #30 tab Nitroglycerin Sl Tabs [Nitrostat] 0.4 mg SUBLINGUAL Q5M PRN #25 tab PRN Reason: Chest Pain Metoprolol Succinate (ER) [Toprol XL] 25 mg PO DAILY #30 tab.er.24h Lisinopril [Zestril] 20 mg PO DAILY #30 tab Aspirin 81 mg PO DAILY #30 tab Continue Nicotine [Nicoderm Cq] 1 patch TRANSDERM DAILY Discontinued Enalapril Maleate 10 mg PO DAILY Ibuprofen [Motrin] 600 mg PO TID No Action Zolpidem Tartrate 10 mg PO HS PRN PRN Reason: Insomnia Gabapentin 600 mg PO QID Montelukast Sodium [Singulair] 10 mg PO HS oxyCODONE-APAP 10-325MG [Percocet 10-325 mg] 1 tab PO TID Discharge Medication List Gabapentin 600 mg PO QID 01/15/15 [History] Zolpidem Tartrate 10 mg PO HS PRN 01/15/15 [History] Montelukast Sodium [Singulair] 10 mg PO HS 10/17/18 [History] Nicotine [Nicoderm Cq] 1 patch TRANSDERM DAILY 06/01/19 [History] oxyCODONE-APAP 10-325MG [Percocet 10-325 mg] 1 tab PO TID 06/01/19 [History] Aspirin 81 mg PO DAILY #30 tab 06/04/19 [Rx] Atorvastatin [Lipitor] 40 mg PO HS #30 tab 06/04/19 [Rx] Lisinopril [Zestril] 20 mg PO DAILY #30 tab 06/04/19 [Rx] Metoprolol Succinate (ER) [Toprol XL] 25 mg PO DAILY #30 tab.er.24h 06/04/19 [Rx] Nitroglycerin Sl Tabs [Nitrostat] 0.4 mg SUBLINGUAL Q5M PRN #25 tab 06/04/19 [Rx] Prasugrel [Effient] 10 mg PO DAILY #30 tab 06/04/19 [Rx] Follow up Appointment(s)/Referral(s): [facility] [NON-STAFF] - 1 Week (After discharge, you will follow- up with your watershed engineer. Once you have obtained a prescription for cardiac rehab, please call [phone] to set up an evaluation.) Ketan Allison MD [STAFF PHYSICIAN] - 06/12/19 4:30 pm (Tuesday) Saman Gray MD [Primary Care Provider] - 06/08/19 10:30 am (Tuesday ) Ambulatory/Diagnostic Orders: Complete Blood Count w/diff [LAB.AMB] Time Frame: 3 Days, Location: None Selected Patient Instructions/Handouts: *Sur[facility] - After Heart Catheterization - [facility] Instructions, Heart Healthy Diet (DC) Discharge Disposition: HOME SELF-CARE
[2019-06-05] MEDS ORDERED: ASPIRIN 81 MG PO SCH (09:00)
== END 2019-06-04 12:49 | disposition home or self-care (01) | DRG 247 ==
LOC: EC 10:05 → 3SCARD 12:30
PROVIDERS: ADMIT Family Medicine; ATTEND Family Medicine
PROC: 027034Z Dilation of Coronary Artery, One Artery with Drug-eluting Intraluminal Device, Percutaneous Approach (ICD-10-PCS; principal; 2019-06-01 20:05)
PROC: B2111ZZ Fluoroscopy of Multiple Coronary Arteries using Low Osmolar Contrast (ICD-10-PCS; 2019-06-01 20:05)
PROC: 4A023N7 Measurement of Cardiac Sampling and Pressure, Left Heart, Percutaneous Approach (ICD-10-PCS; 2019-06-01 20:05)
DX: I21.4 Non-ST elevation (NSTEMI) myocardial infarction (principal); I51.81 Takotsubo syndrome; E78.5 Hyperlipidemia, unspecified; F17.200 Nicotine dependence, unspecified, uncomplicated; G62.9 Polyneuropathy, unspecified; I10 Essential (primary) hypertension; I25.9 Chronic ischemic heart disease, unspecified; J43.9 Emphysema, unspecified; M06.9 Rheumatoid arthritis, unspecified; M19.90 Unspecified osteoarthritis, unspecified site; Z79.82 Long term (current) use of aspirin; I25.2 Old myocardial infarction; Z79.899 Other long term (current) drug therapy; Z80.0 Family history of malignant neoplasm of digestive organs; Z82.49 Family history of ischemic heart disease and other diseases of the circulatory system; Z88.5 Allergy status to narcotic agent; Z90.49 Acquired absence of other specified parts of digestive tract; Z98.890 Other specified postprocedural states
CPT/HCPCS: 36415; 71275; 80053; 80061; 81001; 82565; 83036; 83735; 84484; 85025; 85379; 85610; 85730; 93005; 93306; 93458; 94640; 96361; 96365; 96376; 99291

== ENCOUNTER → 2020-02-20 | Outpatient (CLI) | payer BC, MEDICARE | END | disposition home or self-care (01) | LOC: CPPFTMAIN 15:53 | PROVIDERS: ATTEND Family Medicine | DX: J44.9 Chronic obstructive pulmonary disease, unspecified (principal); R94.2 Abnormal results of pulmonary function studies | CPT/HCPCS: 94060; 94726; 94729 ==

== ENCOUNTER 2021-05-28 07:22 | Day surgery (SDC) | payer BC, MEDICARE ==
[2021-05-25 15:56] VITALS: BMI 31.4
[~2021-05-28 07:22] MED LIST changes: -LACTATED RINGERS 1,000 ML IV SCH; +SODIUM CHLORIDE 0.9% 1,000 ML IV SCH
[2021-05-28 08:15] LABS: African American GFR (CKD) >90 (>60 ml/min/1.73 sqM); Anion Gap 7 mmol/L; Blood Urea Nitrogen 11 mg/dL (9-20); Carbon Dioxide 22 mmol/L (22-30); Chloride 108 mmol/L (98-107); Glucose 113 mg/dL (74-99); Non-African American GFR(CKD) 81 (>60 ml/min/1.73 sqM); Potassium 3.9 mmol/L (3.5-5.1); Sodium 137 mmol/L (137-145)
[2021-05-28 09:18] VITALS: TEMP 98
[2021-05-28] MEDS ORDERED: BENZOCAINE SPRAY 1 CAN TOPICAL ONE (09:18)
[2021-05-28] MEDS ORDERED: PROPOFOL 10 MG/ML 20 ML VIAL IV ONE (09:25)
[2021-05-28] MEDS ORDERED: SODIUM CHLORIDE 0.9% 500 ML 500 ML IV ONE (09:27)
[2021-05-28 09:52] VITALS: RESP 20
[2021-05-28 11:07] VITALS: BP 97/53; PULSE 64
--- NOTE | 2021-05-28 11:31 | P.PCN ---
Date of Procedure: 05/28/21 Operative Findings: Cardioversion Performing physician Ketan Allison M.D. Procedure performed Successful cardioversion of atrial fibrillation to normal sinus mechanism using 200 J at first attempt Indication Atrial fibrillation in this 71-year-old gentleman who was refractory to medical treatment and if it goes cardiomyopathy Complication None Level of sedation The procedure was performed under deep sedation Procedure description After obtaining an informed consent the patient was brought to the recovery room. Transesophageal echocardiogram was performed and showed no evidence of left atrial appendage thrombus. The patient cardioverted from atrial fibrillation to normal sinus mechanism using 200 J and first attempt Postprocedure management Continue the current medical regimen Continue oral anticoagulation Follow-up with the patient
--- NOTE | 2021-05-28 11:34 | P.PCN ---
Date of Procedure: 05/28/21 Operative Findings: TRANSESOPHAGEAL ECHOCARDIOGRAM OUTSOLE CEMENTER MACHINE: FERNIE OLIVAS MD, RPVI INDICATION: Atrial fibrillation. The patient is scheduled to undergo a cardioversion. And the CRISTINA is to rule out intracardiac thrombus SEDATION: Conscious sedation COMPLICATION: None LEVEL OF SEDATION The procedure was performed under deep sedation using propofol PROCEDURE DESCRIPTION: After obtaining an informed consent, the patient was brought to transesophageal echocardiogram room. Pulse oximetry and heart monitors were attached to the patient. The patient throat was sprayed using lidocaine. The patient was turned into left lateral position. After that a bite guard was placed. After an appropriate deep sedation was initiated, the transesophageal echocardiogram was advanced through a bite guard into the mid esophagus. A 2-D echocardiogram images, color Doppler images, continuous wave images, pulse-wave images, of various cardiac structure were performed. After that the transesophageal echocardiogram probe was advanced into the stomach and fixed to obtain transgastric view was. The probe was brought into the mid esophagus. Inter-atrial septum was interrogated using 2D images, color Doppler images, and then contrast study. After that transesophageal echocardiogram was withdrawn out and upon withdrawing the descending thoracic aorta all the way up to the arch was evaluated. FINDING: The left ventricular appears to be dilated. Left ventricle systolic function is improved was EF around 35%. The right ventricle appeared to be mildly dilated. The left atrium and right atrium are moderately dilated. Left atrial appendage appeared to be free from any thrombus. The interatrial septum appeared to be intact without any evidence of shunt. The aortic valve is trileaflet valve without stenosis with mild insufficiency. The mitral valve seems to be mildly thickened with mild to moderate MR. There is [id number] tricuspid regurgitation seen. No evidence of pericardial effusion identified. CONCLUSION: 1. No evidence of intracardiac thrombus 2. Intact interatrial septum 3. Impaired LV function with EF of 35% 4. Moderate biatrial enlargement 5. Aortic sclerosis without stenosis with mild insufficiency 6. [id number] mitral regurgitation
== END 2021-05-28 11:22 | disposition home or self-care (01) ==
LOC: CATHCVL 07:22
PROVIDERS: ATTEND Internal Medicine Interventional Cardiology
DX: I48.0 Paroxysmal atrial fibrillation (principal); I25.10 Atherosclerotic heart disease of native coronary artery without angina pectoris; I25.5 Ischemic cardiomyopathy; E78.5 Hyperlipidemia, unspecified; I10 Essential (primary) hypertension; Z79.01 Long term (current) use of anticoagulants; Z79.82 Long term (current) use of aspirin; Z79.899 Other long term (current) drug therapy; Z88.5 Allergy status to narcotic agent
CPT/HCPCS: 93325; 93312; 93320; 92960; 80048; 87635; J2704